=== PATIENT | female | born 1940 | race Caucasian/White ===

== ENCOUNTER 2018-05-06 14:15 | Observation (INO) | payer MEDICARE ==
[2018-05-06 15:26] LABS: INR-International Normal Ratio 1.1; PTT 28.6 SEC (22.9-36.1); Prothrombin Time 13.9 SEC (12.0-14.7)
[2018-05-06 15:35] LABS: ALT (SGPT) 23 U/L (8-55); AST (SGOT) 25 U/L (5-34); Albumin 4.2 g/dL (3.4-4.8); Alkaline Phosphatase 36 U/L (40-150); Anion Gap 15 mmol/L (10-20); BUN (Urea Nitrogen) 35 mg/dL (9.8-20.1); Bilirubin, Total 0.5 mg/dL (0.2-1.2); Calc. Creatinine Clearance 0 mL/min (70-130); Calcium 10.3 mg/dL (7.8-10.44); Carbon Dioxide 24 mmol/L (23-31); Chloride 104 mmol/L (98-107); Estimated GFR-MDRD 52; Globulin 2.9 g/dL (2.4-3.5); Glucose 119 mg/dL (83-110); Magnesium 2.2 mg/dL (1.6-2.6); Potassium 3.7 mmol/L (3.5-5.1); Protein, Total 7.1 g/dL (6.0-8.3); Sodium 139 mmol/L (136-145)
[2018-05-06 15:36] LABS: Troponin I 0.026 ng/mL (< 0.028)
--- NOTE | 2018-05-06 16:00 | RAD ---
PA AND LATERAL CHEST RADIOGRAPH: Date: 05-06-18 History: Chest pain, headache. Comparison: 04-11-14 FINDINGS: Cardiac silhouette and pulmonary vasculature are within normal limits. The lungs are clear. Degenerat selene change is seen in the spine. Vascular calcification is seen in the thoracic aorta. Calcifications overlie the right upper quadrant likely related to gallbladder calculi. Calculi were noted in the [facility] upper quadrant ultrasound in 2005. IMPRESSION: 1. No acute cardiopulmonary process. 2. Cholelithiasis. POS: [facility]
[2018-05-06 19:41] LABS: Troponin I 0.025 ng/mL (< 0.028)
[2018-05-06 21:34] LABS: Troponin I 0.032 ng/mL (< 0.028)
[2018-05-06 22:01] VITALS: BMI 25.1
[2018-05-06] MEDS ORDERED: Enoxaparin Sodium 80 MG/0.8 ML SYRINGE SC SCH (22:30)
[2018-05-06 22:36] LABS: #Eosinphils 0.1 thou/uL (0.0-0.7); #Lymphocytes 2.5 thou/uL (1.20-3.40); #Monocytes 0.4 thou/uL (0.11-0.59); #Neutrophils 2.9 thou/uL (1.40-6.50); %Basophils 0.5 % (0.0-1.0); %Eosinophils 1.6 % (0.0-10.0); %Lymphocytes 43.1 % (21.0-51.0); %Monocytes 6.1 % (0.0-10.0); %Neutrophils 48.8 % (42.0-75.0); Hemoglobin 13.5 g/dL (12.0-16.0); Mean Corpuscular Hemoglobin 32.3 pg (27.0-31.0); Mean Corpuscular Volume 92.3 fL (78.0-98.0); Mean Platelet Volume 8.2 fL (7.4-10.4); Platelet Count 201 thou/uL (130-400); RBC Distribution Width 11.8 % (11.5-14.5); Red Blood Cell (RBC) Count 4.18 mill/uL (4.20-5.40); White Blood Cell (WBC) Count 5.9 thou/uL (4.8-10.8)
[2018-05-07] MEDS ORDERED: Ondansetron ODT 4 MG TAB PO PRN (08:33)
[2018-05-07] MEDS ORDERED: Ondansetron HCl/PF 4 MG/2 ML Vial IVP PRN (08:33)
[2018-05-07] MEDS ORDERED: HYDROcodone/Acetaminophen 5/325 mg Tablet PO PRN (08:33)
[2018-05-07] MEDS ORDERED: Enoxaparin Sodium 80 MG/0.8 ML SYRINGE SC SCH (09:00)
[2018-05-07] MEDS ORDERED: Non-Formulary Item 1 EACH (Hydrochlorothiazide [Hydrochlorothiazide] 12.5 MG) PO SCH (09:00)
[2018-05-07] MEDS: Hydrochlorothiazide 25 MG TAB PO SCH (09:13)
[2018-05-07] MEDS: Famotidine 20 MG TAB PO SCH ×2 (09:15→20:14)
[2018-05-07] MEDS: Acetaminophen 325 MG TAB PO PRN ×2 (09:18→20:15)
[2018-05-07] MEDS ORDERED: Apixaban 5 MG TAB PO SCH (10:45)
[2018-05-07] MEDS ORDERED: Dronedarone HCl 400 MG TAB PO SCH (10:45)
--- NOTE | 2018-05-07 11:12 | CON ---
DATE OF CONSULTATION: 05/07/2018 CARDIOLOGY CONSULTATION REASON FOR CONSULTATION: Atrial fibrillation with rapid ventricular response. HISTORY OF PRESENT ILLNESS: Ms. Fischer is a pleasant 78-year-old white female who comes to the hospital for palpitations. She was at home, not feeling well. She checked her blood pressure and noted that her heart rate was in the upper 90s, which is not normal for her. She usually runs in the 60s. She came in and was found to be in atrial fibrillation and admitted for this. She was given Lovenox full dose yesterday and Cardiology is being consulted today. She is a patient of Dr. Michelle and he follows her for hypertension. She has had some asymptomatic bradycardia in the past as well. Currently, she is still in atrial fibrillation in the 80s and feels not quite back to her normal self yet. PAST MEDICAL HISTORY: 1. Hypertension. 2. Sinus bradycardia, asymptomatic. 3. Hyperlipidemia. PAST SURGICAL HISTORY: Knee replacement. ALLERGIES: PENICILLIN. OUTPATIENT MEDICATIONS: Include, 1. Vitamin C. 2. Bergholz Krill oil. 3. Aspirin 81 a day. 4. Ambien. 5. Vitamin D3. 6. Losartan 100 mg a day. 7. Amlodipine 5 mg a day. 8. Co-Q10. 9. Cinnamon pills. 10. Multivitamin. 11. Probiotics. 12. Calcium with vitamin D. 13. Turmeric root extract. 14. Fenofibrate 160 mg. 15. Hydrochlorothiazide 12.5 mg daily. ALLERGIES: PENICILLIN. SOCIAL HISTORY: No alcohol, tobacco or drugs. FAMILY HISTORY: Noncontributory. REVIEW OF SYSTEMS: A 12 point review of systems is done and it is all negative except as stated in the history of present illness. PHYSICAL EXAMINATION: VITAL SIGNS: Temperature 98.1, pulse 84, respiratory rate 18, satting 97% on room air, blood pressure 124/69. GENERAL: Awake, alert, oriented x3, in no distress. HEENT: Normocephalic, atraumatic. NECK: Supple. LUNGS: Clear. CARDIOVASCULAR: Irregularly irregular. Heart rate in the 80s. No murmurs. ABDOMEN: Soft with positive bowel sounds. EXTREMITIES: 1+ edema bilateral. SKIN: Warm and dry. LABORATORY DATA: Laboratory work was reviewed. CBC was unremarkable. Coags were normal. Chemistry was unremarkable. BNP was 168 and troponin was 0.02, 0.02, 0.03. TSH was normal. IMAGING DATA: EKG was reviewed, AFib in the low 100s, initially, currently in the 80s. ASSESSMENT AND PLAN: 1. New onset atrial fibrillation. 2. Hypertension. PLAN: She is already rate controlled, but still mildly symptomatic. I think she would benefit from being back in sinus rhythm. We will plan on HILL cardioversion tomorrow. I have spoken with her at length about the risks and benefits of this procedure and she agrees to proceed. We will plan on doing this overnight. Hopefully, she will convert with the Multaq that we are starting today and we are putting her on Eliquis twice a day as well for stroke prophylaxis. Her CHADS VASc score is 4. Otherwise, she had a normal LV function on echo recent in June of last year. Thank you for allowing us to participate in the care of your patient. VERO
[2018-05-07] MEDS: Dronedarone HCl 400 MG TAB PO SCH (16:49)
[2018-05-07] MEDS: Apixaban 5 MG TAB PO SCH (20:14)
[2018-05-07] MEDS: Aspirin 81 mg Enteric Coated Tablet PO SCH ×2 (20:15→20:18)
[2018-05-07] MEDS ORDERED: Non-Formulary Item 1 EACH (Losartan Potassium [Losartan Potassium] 100 MG) PO SCH (21:00)
[2018-05-07] MEDS ORDERED: Losartan 25 MG TAB PO SCH (21:00)
[2018-05-07] MEDS ORDERED: Fenofibrate Nanocrystallized 145 MG TAB PO SCH (21:00)
[2018-05-07] MEDS ORDERED: FENOFIBRATE 160 MG PO SCH (21:00)
[2018-05-07] MEDS ORDERED: Zolpidem Tartrate 5 MG TAB PO PRN (23:12)
[2018-05-08] MEDS ORDERED: Flecainide 50 MG TAB PO SCH (09:00)
[2018-05-08] MEDS: Dronedarone HCl 400 MG TAB PO SCH (09:07)
[2018-05-08] MEDS: Hydrochlorothiazide 25 MG TAB PO SCH (09:21)
[2018-05-08] MEDS: Apixaban 5 MG TAB PO SCH (09:22)
[2018-05-08] MEDS: Famotidine 20 MG TAB PO SCH (09:22)
[2018-05-08 12:22] VITALS: BP 118/56; TEMP 97.2
--- NOTE | 2018-05-08 13:41 | OP ---
CARDIOLOGY PROCEDURE NOTE: Date: 05/08/18 PREPROCEDURE DIAGNOSIS: Atrial fibrillation, RVR. PROCEDURE PERFORMED: Synchronized cardioversion. SUMMARY: Ms. Spivey is a pleasant 78-year-old white female who comes to the PACU area for planned HILL and ca rdioversion. Please see HILL report for details. After adequate sedation was achieved by the anesthes ia department, one single synchronized shock at 100 joules was delivered, successfully converting her from atrial fibrillation into sinus rhythm. Patient tolerated the procedure well. RECOMMENDATIONS: 1. Continue full anticoagulation and Multaq. 2. She will follow up with Dr. Michelle in 2-4 weeks.
[2018-05-08] MEDS ORDERED: PROPOFOL 200 MG/20 ML VIAL ONE (13:46)
[2018-05-08] MEDS ORDERED: PHENYLEPHRINE-NS 100 MCG/ML 10 ML SYRINGE ONE (13:46)
--- NOTE | 2018-05-08 13:46 | ECHO ---
TRANSESOPHAGEAL ECHOCARDIOGRAM: DATE OF SERVICE: 05/08/18 PREPROCEDURE DIAGNOSIS: Atrial fibrillation. Transesophageal echo was done for evaluation of left atrial appendage. The anesthesiology department provided sedation for the patient. Please see their notes for details. After adequate sedation was achieved, the transesophageal probe was inserted into the mouth and into the esophagus with ease. Multiplanar views were then obtained. FINDINGS: Left ventricle is normal size with normal LV function. EF estimated about 50-55%. Left atrium is moderately dilated. Left atrial appendage is a large appendage with two lobes. There is no evidence of mass or thrombus. There is spontaneous echo contrast inside. Right atrium is mildly dilated. Right ventricle is normal size with normal systolic function. Aortic valve is structurally normal. No stenosis or regurgitation. Mitral valve is structurally normal. There is moderate MR. Tricuspid valve is structurally normal. There is moderate TR. Pulmonary valve is structurally normal. There is mild PI. Thoracic aorta is normal caliber with no evidence of dissections. CONCLUSIONS: 1. Normal LV function, EF of 50-55%. 2. Moderate left atrial enlargement. 3. Moderate MR. 4. Moderate TR. 5. Mild PI. 6. Left atrial appendage is bilobed with no evidence of mass or thrombus. Spontaneous echo contrast is seen.
== END 2018-05-08 12:31 | disposition home or self-care (01) ==
LOC: SCSER 14:15 → ERHOLD 18:57 → 2SW 21:32
PROVIDERS: ADMIT Internal Medicine Infectious Disease; ATTEND Internal Medicine Infectious Disease
DX: I48.91 Unspecified atrial fibrillation (principal); I10 Essential (primary) hypertension; E78.5 Hyperlipidemia, unspecified; Z88.0 Allergy status to penicillin; Z79.82 Long term (current) use of aspirin; Z79.899 Other long term (current) drug therapy
CPT/HCPCS: 71046; 83735; 83880; 84484 ×2; 85610; 85730; 92960; 93005; 93312; 96360; 96372; 99285; G0378; 36415; 80053; 84443; 85025; J1650; J2704

== ENCOUNTER 2018-07-03 07:55 | Emergency (ER) | payer MEDICARE ==
[2018-07-03 08:22] LABS: Hemoglobin 15.7 g/dL (12.0-16.0); Mean Corpuscular Hemoglobin 30.4 pg (27.0-31.0); Mean Corpuscular Volume 92.1 fL (78.0-98.0); Mean Platelet Volume 8.6 fL (7.4-10.4); Platelet Count 195 thou/uL (130-400); RBC Distribution Width 11.4 % (11.5-14.5); Red Blood Cell (RBC) Count 5.16 mill/uL (4.20-5.40); White Blood Cell (WBC) Count 6.6 thou/uL (4.8-10.8)
[2018-07-03 08:34] LABS: ALT (SGPT) 24 U/L (8-55); AST (SGOT) 35 U/L (5-34); Albumin 4.4 g/dL (3.4-4.8); Alkaline Phosphatase 37 U/L (40-150); Anion Gap 15 mmol/L (10-20); BUN (Urea Nitrogen) 24 mg/dL (9.8-20.1); Bilirubin, Total 0.7 mg/dL (0.2-1.2); CK (CPK) 75 U/L (29-168); Calc. Creatinine Clearance 0 mL/min (70-130); Calcium 10.4 mg/dL (7.8-10.44); Carbon Dioxide 23 mmol/L (23-31); Chloride 105 mmol/L (98-107); Estimated GFR-MDRD 66; Globulin 3.3 g/dL (2.4-3.5); Glucose 168 mg/dL (83-110); Potassium 4.1 mmol/L (3.5-5.1); Protein, Total 7.7 g/dL (6.0-8.3); Sodium 139 mmol/L (136-145)
[2018-07-03 08:35] LABS: CKMB 1.6 ng/mL (0-6.6); Troponin I 0.017 ng/mL (< 0.028)
[2018-07-03 08:36] LABS: Band 1 % (5-11); Eosinophils 1 % (0-10); Lymphocytes 41 % (21-51); MDiff Complete? YES; Monocytes 8 % (0-10); Neutrophil 46 % (42-75); PLT Morphology Comment Appears Adequate; RBC Morphology Normal; Reactive Lymphocytes 1 % (0-10)
--- NOTE | 2018-07-03 09:48 | RAD ---
CHEST ONE VIEW: HISTORY: Tachycardia. COMPARISON: 06/06/2004 FINDINGS: Normal cardiac silhouette. Pulmonary vessels and hilum are normal. No masses or consolidation. No pneumothorax. Chronic changes in the right shoulder. IMPRESSION: No acute cardiopulmonary process. POS: [facility]
== END 2018-07-03 09:27 | disposition home or self-care (01) ==
LOC: SCSER 07:55
DX: R00.2 Palpitations (principal); E78.2 Mixed hyperlipidemia; I10 Essential (primary) hypertension; Z79.899 Other long term (current) drug therapy
CPT/HCPCS: 71045; 80053; 82550; 82553; 84484; 85025; 93005

== ENCOUNTER 2018-11-12 06:51 | Emergency (ER) | payer MEDICARE ==
[2018-11-12 07:20] LABS: #Basophils 0.1 thou/uL (0.0-0.2); #Eosinphils 0.1 thou/uL (0.0-0.7); #Lymphocytes 2.9 thou/uL (1.20-3.40); #Monocytes 0.5 thou/uL (0.11-0.59); #Neutrophils 2.6 thou/uL (1.40-6.50); %Basophils 1.1 % (0.0-1.0); %Eosinophils 1.1 % (0.0-10.0); %Lymphocytes 46.9 % (21.0-51.0); %Monocytes 8.6 % (0.0-10.0); %Neutrophils 42.3 % (42.0-75.0); Hemoglobin 14.9 g/dL (12.0-16.0); Mean Corpuscular HGB CONC 33.8 g/dL (32.0-36.0); Mean Corpuscular Hemoglobin 31.4 pg (27.0-31.0); Mean Corpuscular Volume 92.9 fL (78.0-98.0); Mean Platelet Volume 8.5 fL (7.4-10.4); Platelet Count 180 thou/uL (130-400); RBC Distribution Width 12.2 % (11.5-14.5); Red Blood Cell (RBC) Count 4.76 mill/uL (4.20-5.40); White Blood Cell (WBC) Count 6.1 thou/uL (4.8-10.8)
[2018-11-12 07:38] LABS: ALT (SGPT) 20 U/L (8-55); AST (SGOT) 24 U/L (5-34); Albumin 4.3 g/dL (3.4-4.8); Alkaline Phosphatase 57 U/L (40-150); Anion Gap 16 mmol/L (10-20); BUN (Urea Nitrogen) 19 mg/dL (9.8-20.1); Bilirubin, Total 0.7 mg/dL (0.2-1.2); Calc. Creatinine Clearance 0 mL/min (70-130); Calcium 10.2 mg/dL (7.8-10.44); Carbon Dioxide 25 mmol/L (23-31); Chloride 103 mmol/L (98-107); Estimated GFR-MDRD 68; Glucose 147 mg/dL (83-110); Lipase 38 U/L (8-78); Potassium 3.8 mmol/L (3.5-5.1); Protein, Total 7.3 g/dL (6.0-8.3); Sodium 140 mmol/L (136-145)
--- NOTE | 2018-11-12 08:09 | RAD ---
EXAM: CHEST TWO VIEWS: History: Shortness of breath. Heart racing. Irregular heart. Comparison: 05-06-18 FINDINGS: Heart size is within normal limits. The lungs are clear. No pneumonia, edema, or pleural effusion. IMPRESSION: No acute intrathoracic disease. No evidence for pneumonia or edema. Atherosclerosis of the aorta. POS: [facility]
== END 2018-11-12 09:54 | disposition home or self-care (01) ==
LOC: SCSER 06:51
DX: I48.91 Unspecified atrial fibrillation (principal); E78.2 Mixed hyperlipidemia; I10 Essential (primary) hypertension; Z79.899 Other long term (current) drug therapy
CPT/HCPCS: 71046; 80053; 83690; 83880; 84484; 85025; 85379; 93005; 94760

== ENCOUNTER 2020-02-05 12:44 | Outpatient (CLI) | payer MEDICARE ==
--- NOTE | 2020-02-05 13:18 | RAD ---
EXAM: Chest PA and lateral: HISTORY: Cough. Symptoms x6 weeks. COMPARISON: 11/12/2018 FINDINGS: Heart: Normal cardiac silhouette Aorta: Atherosclerosis of the aortic knob Pulmonary vessels: Normal Costophrenic angles: Costophrenic angles are clear. Lungs: No consolidation or masses. Pneumothorax: No pneumothorax Osseous structures: No osseous abnormalities IMPRESSION: No acute cardiopulmonary process. Atherosclerosis.
== END 2020-02-05 12:45 | disposition home or self-care (01) ==
LOC: BICRAD 12:44
PROVIDERS: ATTEND Internal Medicine
DX: R05 Cough (principal); I70.0 Atherosclerosis of aorta
CPT/HCPCS: 71046

== ENCOUNTER 2021-01-19 08:00 | Outpatient (CLI) | payer MEDICARE | END 2021-01-19 08:01 | disposition home or self-care (01) | LOC: BICMAMMO 08:00 | PROVIDERS: ATTEND Internal Medicine | DX: Z13.820 Encounter for screening for osteoporosis (principal); Z78.0 Asymptomatic menopausal state; M85.852 Other specified disorders of bone density and structure, left thigh; M85.851 Other specified disorders of bone density and structure, right thigh | CPT/HCPCS: 77080 ==

== ENCOUNTER 2021-09-14 14:41 | Outpatient (CLI) | payer MEDICARE ==
[2021-09-14 15:59] LABS: #Eosinphils 0.1 10x3/uL (0.0-0.5); #Monocytes 0.4 10x3/uL (0.0-1.1); #Neutrophils 2.6 10x3/uL (1.5-8.4); %Basophils 0.5 % (0.0-2.0); %Lymphocytes 47.6 % (18.0-47.0); %Neutrophils 43.7 % (40.0-75.0); Mean Corpuscular HGB CONC 32.8 g/dL (32.0-36.0); Mean Corpuscular Hemoglobin 30.9 pg (27.0-33.0); Mean Corpuscular Volume 94.1 fl (81.6-98.3); Mean Platelet Volume 11.8 fl (7.4-10.4); Platelet Count 230 10x3/uL (150-450); Red Blood Cell (RBC) Count 4.21 10x6/uL (3.90-5.03)
[2021-09-14 17:03] LABS: Bilirubin Neg (Negative); Blood, Urine Negative (Negative); Clarity Clear (Clear); Glucose, Urine (Dipstick) Normal (Negative); Ketone, Urine Negative (Negative); Leukocyte Negative (Negative); Nitrite Negative (Negative); Protein, Urine (Dipstick) Negative (Neg-Trace); Urobilinogen Normal mg/dL (Less than 2)
[2021-09-15 00:40] LABS: SARS-CoV-2 PCR by NAA Not Detected (NotDetected)
== END 2021-09-14 14:42 | disposition home or self-care (01) ==
LOC: LABBT 14:41
PROVIDERS: ATTEND Orthopaedic Surgery Hand Surgery
DX: Z01.818 Encounter for other preprocedural examination (principal); G56.01 Carpal tunnel syndrome, right upper limb; Z20.822 Contact with and (suspected) exposure to COVID-19
CPT/HCPCS: 81003; 85025; 93005; U0003; U0005; 93010

== ENCOUNTER 2021-09-19 11:42 | Day surgery (SDC) | payer MEDICARE ==
[2021-09-15 12:00] VITALS: BMI 22.6
[2021-09-19] MEDS ORDERED: Fentanyl 100 MCG/2 ML VIAL ONE (13:06)
[2021-09-19] MEDS ORDERED: Bacitracin Zinc Ointment 30 gm TUBE ONE (13:49)
[2021-09-19] MEDS ORDERED: Bupivacaine PF 0.5% 30 ML VIAL ONE (13:49)
[2021-09-19] MEDS ORDERED: Betamet Acet/Betamet Na Ph 30 MG/5 ML VIAL ONE (13:49)
[2021-09-19] MEDS ORDERED: Levofloxacin 500 mg/D5W 100 ml Premix Bag ONE (13:52)
[2021-09-19] MEDS ORDERED: Clindamycin/D5W 900 mg/50 ml Premix Bag ONE (13:52)
[2021-09-19] MEDS ORDERED: Ondansetron PF 4 MG/2 ML Vial ONE (14:08)
[2021-09-19] MEDS ORDERED: Lidocaine 1% PF 5 ML VIAL ONE (14:08)
[2021-09-19] MEDS ORDERED: PROPOFOL 200 MG/20 ML VIAL ONE (14:08)
[2021-09-19] MEDS ORDERED: ePHEDrine 50 MG/ML VIAL ONE (14:08)
[2021-09-19] MEDS ORDERED: Dexamethasone 20 MG/5 ML VIAL ONE (14:08)
[2021-09-19] MEDS ORDERED: Thrombin 5000 UNITS/5 ML VIAL ONE (14:25)
== END 2021-09-19 16:25 | disposition home or self-care (01) ==
LOC: SDC 11:42
PROVIDERS: ATTEND Orthopaedic Surgery Hand Surgery
PROC: 01N50ZZ Release Median Nerve, Open Approach (ICD-10-PCS; principal; 2021-09-19)
DX: G56.01 Carpal tunnel syndrome, right upper limb (principal); I48.91 Unspecified atrial fibrillation; I38 Endocarditis, valve unspecified; Z79.01 Long term (current) use of anticoagulants; Z79.84 Long term (current) use of oral hypoglycemic drugs; Z79.899 Other long term (current) drug therapy; Z88.0 Allergy status to penicillin
CPT/HCPCS: C1713; J0702; J1100; J1956; J2405; J2704; J3010; J3490; S0020

== ENCOUNTER 2024-08-25 07:10 | Inpatient (IN) | payer MEDICARE ==
[2024-08-25 07:45] LABS: #Basophils 0.03 10x3/uL (0.0-0.2); %Basophils 0.6 % (0.0-1.0); %Eosinophils 0.8 % (0.0-10.0); %Lymphocytes 49.1 % (21.0-51.0); %Monocytes 6.8 % (0.0-10.0); %Neutrophils 42.5 % (42.0-75.0); Hematocrit 42.9 % (36.0-47.0); Hemoglobin 14.5 g/dL (12.0-16.0); Mean Corpuscular HGB CONC 33.8 g/dL (32.0-36.0); Mean Corpuscular Hemoglobin 30.9 pg (27.0-31.0); Mean Corpuscular Volume 91.5 fL (78.0-98.0); Platelet Count 211 10x3/uL (130-400); RBC Distribution Width 13.4 % (11.5-14.5); Red Blood Cell (RBC) Count 4.69 mill/uL (4.20-5.40)
[2024-08-25] MEDS ORDERED: Ondansetron PF 4 MG/2 ML Vial ONE (07:48)
[2024-08-25] MEDS ORDERED: Acetaminophen 325 MG TAB ONE ×2 (07:48→15:50)
[2024-08-25 08:02] LABS: ALT (SGPT) 13 U/L (8-55); AST (SGOT) 26 U/L (5-34); Albumin 3.9 g/dL (3.4-4.8); Alkaline Phosphatase 40 U/L (40-110); Anion Gap 14 mmol/L (10-20); BUN (Urea Nitrogen) 18 mg/dL (9.8-20.1); Bilirubin, Total 0.9 mg/dL (0.2-1.2); Calc. Creatinine Clearance 0 mL/min (70-130); Calcium 9.9 mg/dL (7.8-10.44); Carbon Dioxide 24 mmol/L (23-31); Chloride 105 mmol/L (98-107); Estimated GFR 59; Glucose 147 mg/dL (83-110); Magnesium 1.8 mg/dL (1.6-2.6); Potassium 3.7 mmol/L (3.5-5.1); Protein, Total 6.9 g/dL (5.8-8.1); Sodium 139 mmol/L (136-145)
[2024-08-25 08:18] LABS: Troponin I Less than 0.010 ng/mL (< 0.028)
[2024-08-25] MEDS ORDERED: Magnesium 2 GM/50 ML BAG (IN WATER) ONE (09:22)
[2024-08-25] MEDS ORDERED: Potassium Chloride 20 MEQ TAB ONE (09:22)
[2024-08-25] MEDS ORDERED: Insulin Regular, Human 100 UNIT/ML 10 ML VIAL SC PRN ×2 (10:57)
[2024-08-25] MEDS ORDERED: Dextrose 5% in Water 1,000 ML IV PRN (10:57)
[2024-08-25] MEDS ORDERED: Glucagon 1 MG/ML KIT IM PRN (10:57)
[2024-08-25] MEDS ORDERED: Dextrose 50% Abboject 50 ML SYRINGE SLOW IVP PRN (10:57)
[2024-08-25] MEDS: Acetaminophen 325 MG TAB PO PRN (15:53)
[2024-08-25 17:55] VITALS: BMI 21.7
[2024-08-25] MEDS ORDERED: Flecainide 50 MG TAB PO SCH (21:00)
[2024-08-25] MEDS: Flecainide 50 MG TAB PO SCH (21:05)
[2024-08-25] MEDS: Apixaban 5 MG TAB PO SCH (21:05)
[2024-08-26 04:42] LABS: #Basophils 0.03 10x3/uL (0.0-0.2); %Basophils 0.6 % (0.0-1.0); %Eosinophils 2.3 % (0.0-10.0); %Lymphocytes 43.5 % (21.0-51.0); %Monocytes 8.5 % (0.0-10.0); %Neutrophils 44.9 % (42.0-75.0); Hematocrit 40.8 % (36.0-47.0); Hemoglobin 13.2 g/dL (12.0-16.0); Mean Corpuscular HGB CONC 32.4 g/dL (32.0-36.0); Mean Corpuscular Hemoglobin 30.6 pg (27.0-31.0); Mean Corpuscular Volume 94.4 fL (78.0-98.0); Mean Platelet Volume 11.3 fL (7.4-10.4); Platelet Count 195 10x3/uL (130-400); RBC Distribution Width 13.5 % (11.5-14.5); Red Blood Cell (RBC) Count 4.32 mill/uL (4.20-5.40)
[2024-08-26 04:53] LABS: Anion Gap 10 mmol/L (10-20); BUN (Urea Nitrogen) 19 mg/dL (9.8-20.1); Calc. Creatinine Clearance 49 mL/min (70-130); Calcium 9.3 mg/dL (7.8-10.44); Carbon Dioxide 26 mmol/L (23-31); Chloride 106 mmol/L (98-107); Estimated GFR 64; Glucose 119 mg/dL (83-110); Potassium 3.6 mmol/L (3.5-5.1); Sodium 138 mmol/L (136-145)
[2024-08-26] MEDS ORDERED: PROPOFOL 200 MG/20 ML VIAL ONE (09:14)
[2024-08-26] MEDS ORDERED: Lidocaine 1% PF 5 ML VIAL ONE (09:14)
[2024-08-26] MEDS: Flecainide 50 MG TAB PO SCH (20:57)
[2024-08-27 15:32] VITALS: BP 129/58; TEMP 97.3
== END 2024-08-27 17:00 | disposition home or self-care (01) | DRG 310 ==
LOC: ERS 07:10 → ERHOLD 09:39 → OBS 17:39 → OBSVTOIN 08-26 23:01
PROVIDERS: ADMIT Hospitalist; ATTEND Student in an Organized Health Care Education/Training Program
PROC: B24BZZ4 Ultrasonography of Heart with Aorta, Transesophageal (ICD-10-PCS; principal; 2024-08-26)
PROC: 5A2204Z Restoration of Cardiac Rhythm, Single (ICD-10-PCS; 2024-08-26)
DX: I48.0 Paroxysmal atrial fibrillation (principal); E11.9 Type 2 diabetes mellitus without complications; I10 Essential (primary) hypertension; E78.5 Hyperlipidemia, unspecified; Z79.01 Long term (current) use of anticoagulants; Z88.0 Allergy status to penicillin; Z96.651 Presence of right artificial knee joint; Z90.710 Acquired absence of both cervix and uterus; Z79.899 Other long term (current) drug therapy; I47.19 Other supraventricular tachycardia; Z88.1 Allergy status to other antibiotic agents; I34.0 Nonrheumatic mitral (valve) insufficiency; I70.0 Atherosclerosis of aorta
CPT/HCPCS: 36415; 36416; 71045; 80048; 80053; 83735; 84443; 84484; 85025; 85379; 92960; 93005; 93010; 93312; 94760; 96374; 96375; G0378; J2405; J2704; J3475

== ENCOUNTER 2024-09-06 17:10 | Inpatient (IN) | payer MEDICARE ==
[2024-09-06 18:48] LABS: #Basophils 0.03 10x3/uL (0.0-0.2); %Basophils 0.4 % (0.0-1.0); %Eosinophils 0.9 % (0.0-10.0); %Lymphocytes 45.3 % (21.0-51.0); %Monocytes 7.3 % (0.0-10.0); Hematocrit 45.2 % (36.0-47.0); Mean Corpuscular HGB CONC 33.2 g/dL (32.0-36.0); Mean Corpuscular Volume 93.4 fL (78.0-98.0); Mean Platelet Volume 10.9 fL (7.4-10.4); Platelet Count 235 10x3/uL (130-400); RBC Distribution Width 13.6 % (11.5-14.5); Red Blood Cell (RBC) Count 4.84 mill/uL (4.20-5.40)
[2024-09-06] MEDS ORDERED: Midazolam HCl 5 mg/ml Vial ONE (18:50)
[2024-09-06 19:04] LABS: ALT (SGPT) 17 U/L (8-55); AST (SGOT) 30 U/L (5-34); Albumin 4.5 g/dL (3.4-4.8); Alkaline Phosphatase 53 U/L (40-110); Anion Gap 14 mmol/L (10-20); BUN (Urea Nitrogen) 24 mg/dL (9.8-20.1); Bilirubin, Total 0.6 mg/dL (0.2-1.2); Calc. Creatinine Clearance 0 mL/min (70-130); Calcium 10.4 mg/dL (7.8-10.44); Carbon Dioxide 25 mmol/L (23-31); Chloride 103 mmol/L (98-107); Estimated GFR 51; Globulin 3.5 g/dL (2.4-3.5); Glucose 122 mg/dL (83-110); Potassium 3.4 mmol/L (3.5-5.1); Sodium 139 mmol/L (136-145)
[2024-09-06 19:08] LABS: Troponin I 0.016 ng/mL (< 0.028)
[2024-09-06] MEDS ORDERED: traMADol HCl 50 MG TAB PO PRN (19:40)
[2024-09-06] MEDS ORDERED: Ondansetron ODT 4 MG TAB PO PRN (19:40)
[2024-09-06] MEDS ORDERED: Potassium Bicarbonate/Cit Ac 20 MEQ TAB ONE (19:44)
[2024-09-06 20:12] LABS: INR-International Normal Ratio 1.2; Prothrombin Time 14.9 sec (12.0-14.7)
[2024-09-06 20:13] LABS: PTT 33.4 sec (22.9-36.1)
[2024-09-06] MEDS ORDERED: Heparin 25,000 units/D5W 500 ML ONE (21:33)
[2024-09-06] MEDS ORDERED: Heparin 5,000 UNITS/ML VIAL ONE (21:33)
[2024-09-07 00:13] VITALS: BMI 21.4
[2024-09-07] MEDS: Losartan 25 MG TAB PO SCH (00:17)
[2024-09-07] MEDS: Famotidine/PF 20 mg/2ml Vial SLOW IVP SCH (00:18)
[2024-09-07] MEDS: Famotidine 20 MG TAB PO SCH (00:18)
[2024-09-07] MEDS: Flecainide 50 MG TAB PO SCH ×3 (00:18→20:46)
[2024-09-07] MEDS: Zolpidem Tartrate 5 MG TAB PO PRN (00:28)
[2024-09-07] MEDS ORDERED: Heparin 25,000 units/D5W 500 ML IV SCH (02:00)
[2024-09-07] MEDS ORDERED: Heparin 10,000 UNITS/ 10 ML VIAL SLOW IVP SCH (02:00)
[2024-09-07 03:58] LABS: #Basophils 0.04 10x3/uL (0.0-0.2); %Basophils 0.6 % (0.0-1.0); %Eosinophils 1.4 % (0.0-10.0); %Monocytes 10.1 % (0.0-10.0); %Neutrophils 46.7 % (42.0-75.0); Hemoglobin 13.5 g/dL (12.0-16.0); Mean Corpuscular HGB CONC 32.9 g/dL (32.0-36.0); Mean Platelet Volume 11.2 fL (7.4-10.4); Platelet Count 204 10x3/uL (130-400); RBC Distribution Width 13.6 % (11.5-14.5); Red Blood Cell (RBC) Count 4.36 mill/uL (4.20-5.40)
[2024-09-07 04:23] LABS: ALT (SGPT) 12 U/L (8-55); AST (SGOT) 22 U/L (5-34); Albumin 3.6 g/dL (3.4-4.8); Alkaline Phosphatase 34 U/L (40-110); Anion Gap 11 mmol/L (10-20); BUN (Urea Nitrogen) 18 mg/dL (9.8-20.1); Bilirubin, Total 0.7 mg/dL (0.2-1.2); Calc. Creatinine Clearance 53 mL/min (70-130); Calcium 9.9 mg/dL (7.8-10.44); Carbon Dioxide 25 mmol/L (23-31); Chloride 106 mmol/L (98-107); Estimated GFR 72; Globulin 2.6 g/dL (2.4-3.5); Glucose 121 mg/dL (83-110); Protein, Total 6.2 g/dL (5.8-8.1); Sodium 138 mmol/L (136-145)
[2024-09-07 06:17] LABS: PTT 171.9 sec (22.9-36.1)
[2024-09-07] MEDS: Acetaminophen 325 MG TAB PO PRN (08:13)
[2024-09-07] MEDS: Magnesium Oxide 400 MG TAB PO SCH (10:22)
[2024-09-07] MEDS: Fenofibrate Nanocrystallized 145 MG TAB PO SCH (10:22)
[2024-09-07] MEDS: Rosuvastatin 5 MG TAB PO SCH (10:22)
[2024-09-07] MEDS: Cyanocobalamin (Vitamin B-12) 1,000 MCG TAB PO SCH (10:22)
[2024-09-07] MEDS: Zinc Sulfate 220 MG CAP PO SCH (10:23)
[2024-09-07] MEDS ORDERED: Metoprolol Tartrate 25 MG TAB PO SCH (11:30)
[2024-09-07] MEDS: Magnesium 2 GM/50 ML(in water) 2 GM in Premix 1 BAG IVPB SCH (13:04)
[2024-09-07] MEDS: Apixaban 5 MG TAB PO SCH (20:45)
[2024-09-08 04:53] LABS: #Basophils 0.05 10x3/uL (0.0-0.2); %Basophils 0.9 % (0.0-1.0); %Eosinophils 2.5 % (0.0-10.0); %Lymphocytes 50.5 % (21.0-51.0); %Monocytes 8.7 % (0.0-10.0); %Neutrophils 37.2 % (42.0-75.0); Hematocrit 41.7 % (36.0-47.0); Hemoglobin 13.5 g/dL (12.0-16.0); Mean Corpuscular HGB CONC 32.4 g/dL (32.0-36.0); Mean Corpuscular Hemoglobin 31.1 pg (27.0-31.0); Mean Corpuscular Volume 96.1 fL (78.0-98.0); Mean Platelet Volume 10.9 fL (7.4-10.4); Platelet Count 194 10x3/uL (130-400); RBC Distribution Width 13.7 % (11.5-14.5); Red Blood Cell (RBC) Count 4.34 mill/uL (4.20-5.40)
[2024-09-08 05:09] LABS: Anion Gap 14 mmol/L (10-20); BUN (Urea Nitrogen) 23 mg/dL (9.8-20.1); Calc. Creatinine Clearance 38 mL/min (70-130); Calcium 9.4 mg/dL (7.8-10.44); Carbon Dioxide 19 mmol/L (23-31); Chloride 107 mmol/L (98-107); Estimated GFR 48; Glucose 119 mg/dL (83-110); Potassium 4.2 mmol/L (3.5-5.1); Sodium 136 mmol/L (136-145)
[2024-09-08] MEDS ORDERED: Amlodipine 5 MG TAB PO SCH ×2 (09:00)
[2024-09-08] MEDS ORDERED: Etomidate 40 MG (20 mL) VIAL ONE (09:34)
[2024-09-08] MEDS ORDERED: PROPOFOL 200 MG/20 ML VIAL ONE (10:18)
[2024-09-08] MEDS ORDERED: ePHEDrine Sulfate 50 MG/10 ML VIAL ONE (10:18)
[2024-09-08] MEDS ORDERED: Lidocaine 1% PF 5 ML VIAL ONE (10:18)
[2024-09-08] MEDS: Famotidine 20 MG TAB PO SCH (11:02)
[2024-09-08] MEDS: Flecainide 50 MG TAB PO SCH (11:15)
[2024-09-08] MEDS: Flecainide Acetate 100 MG TAB PO SCH (20:40)
[2024-09-08] MEDS: Losartan 25 MG TAB PO SCH (20:41)
[2024-09-09 00:14] VITALS: BMI 21.4
[2024-09-09 04:03] LABS: #Basophils 0.03 10x3/uL (0.0-0.2); %Basophils 0.5 % (0.0-1.0); %Lymphocytes 45.5 % (21.0-51.0); %Monocytes 8.8 % (0.0-10.0); Hematocrit 37.5 % (36.0-47.0); Hemoglobin 12.4 g/dL (12.0-16.0); Mean Corpuscular HGB CONC 33.1 g/dL (32.0-36.0); Mean Corpuscular Hemoglobin 30.8 pg (27.0-31.0); Mean Corpuscular Volume 93.1 fL (78.0-98.0); Mean Platelet Volume 10.9 fL (7.4-10.4); Platelet Count 191 10x3/uL (130-400); RBC Distribution Width 13.6 % (11.5-14.5); Red Blood Cell (RBC) Count 4.03 mill/uL (4.20-5.40)
[2024-09-09 04:22] LABS: Anion Gap 12 mmol/L (10-20); BUN (Urea Nitrogen) 33 mg/dL (9.8-20.1); Calc. Creatinine Clearance 44 mL/min (70-130); Calcium 9.3 mg/dL (7.8-10.44); Carbon Dioxide 24 mmol/L (23-31); Chloride 107 mmol/L (98-107); Estimated GFR 57; Glucose 136 mg/dL (83-110); Sodium 139 mmol/L (136-145)
[2024-09-09] MEDS: Ondansetron PF 4 MG/2 ML Vial IVP PRN (04:49)
[2024-09-09] MEDS: Magnesium 2 GM/50 ML(in water) 2 GM in Premix 1 BAG IVPB SCH (09:29)
[2024-09-09 10:45] VITALS: BP 125/61; TEMP 97.9
== END 2024-09-09 13:26 | disposition home or self-care (01) | DRG 310 ==
LOC: ERS 17:10 → 2NO 19:42 → OBSVTOIN 09-07 15:18
PROVIDERS: ADMIT Internal Medicine; ATTEND Internal Medicine
PROC: 5A2204Z Restoration of Cardiac Rhythm, Single (ICD-10-PCS; principal; 2024-09-08)
DX: I48.0 Paroxysmal atrial fibrillation (principal); E78.5 Hyperlipidemia, unspecified; E87.6 Hypokalemia; G47.00 Insomnia, unspecified; Z96.651 Presence of right artificial knee joint; E11.22 Type 2 diabetes mellitus with diabetic chronic kidney disease; I12.9 Hypertensive chronic kidney disease with stage 1 through stage 4 chronic kidney disease, or unspecified chronic kidney disease; N18.2 Chronic kidney disease, stage 2 (mild); E83.42 Hypomagnesemia; Z88.0 Allergy status to penicillin; Z88.2 Allergy status to sulfonamides; Z88.8 Allergy status to other drugs, medicaments and biological substances; Z90.710 Acquired absence of both cervix and uterus
CPT/HCPCS: 36415; 80048; 80053; 83735; 84443; 84484; 85025; 85610; 85730; 92960; 93005; 93010; 96374; J1644; J2250; J2405; J2704; J3475

== ENCOUNTER 2025-04-14 06:09 | Day surgery (SDC) | payer MEDICARE ==
[2025-04-07 09:11] VITALS: BMI 21.4
[2025-04-14] MEDS ORDERED: Vancomycin HCl 1.5 GM VIAL ONE (06:11)
[2025-04-14] MEDS ORDERED: Glycopyrrolate 0.2 MG/ML 5 ML SYRINGE ONE (07:36)
[2025-04-14] MEDS ORDERED: PHENYLEPHRINE-NS 100 MCG/ML 10 ML SYRINGE ONE (07:36)
[2025-04-14] MEDS ORDERED: Lidocaine 1% PF 5 ML VIAL ONE (07:36)
[2025-04-14] MEDS ORDERED: Iopamidol 370 76% 100 ML VIAL ONE (10:06)
[2025-04-14] MEDS ORDERED: Acetaminophen 325 MG TAB ONE (10:54)
== END 2025-04-14 13:48 | disposition home or self-care (01) ==
LOC: SDC 06:09
PROVIDERS: ATTEND Internal Medicine Cardiovascular Disease
DX: I49.5 Sick sinus syndrome (principal); I47.19 Other supraventricular tachycardia; I48.4 Atypical atrial flutter; I10 Essential (primary) hypertension; E78.5 Hyperlipidemia, unspecified; I48.0 Paroxysmal atrial fibrillation; Z92.89 Personal history of other medical treatment; Z98.890 Other specified postprocedural states; Z88.2 Allergy status to sulfonamides; Z88.1 Allergy status to other antibiotic agents; Z88.0 Allergy status to penicillin; Z79.01 Long term (current) use of anticoagulants; Z79.899 Other long term (current) drug therapy
CPT/HCPCS: 33208; 93306; C1769 ×2; C1785; C1894; C1898 ×3; J0282; J1580; J2704; J3010; J3490; Q9967

== ENCOUNTER 2025-10-12 10:48 | Outpatient (CLI) | payer MEDICARE | END 2025-10-12 10:49 | disposition home or self-care (01) | LOC: BICRAD 10:48 | PROVIDERS: ATTEND Internal Medicine | DX: R31.9 Hematuria, unspecified (principal); M54.9 Dorsalgia, unspecified; K80.20 Calculus of gallbladder without cholecystitis without obstruction | CPT/HCPCS: 36415; 74018; 81001; 87086 ==